=== PATIENT | male | born 1960 | race Caucasian/White ===

== ENCOUNTER 2016-08-21 07:49 | Day surgery (SDC) | payer OTHER ==
[~2016-08-21] VITALS: Ht 188 cm; Wt 94.8 kg
[~2016-08-21 07:49] MED LIST: 0.9% Sodium Chloride 1,000 ML IV SCH; ASPI81TA2 PO; ATOR20TA35 PO; LISI1TAB3 PO; METO25T PO; NITR0.4T SL; OMEG500C3 PO; OMEP20TA86 PO; Sodium Chloride LOK Flush 10 mL Syringe IV PRN; VALC TOP; fentaNYL-PF 50 mCg/mL 2 mL Inj IVPUSH PRN
[2016-08-21 08:04] VITALS: BP 124/86; PULSE 68; RESP 14; O2SAT 98
[2016-08-21 08:55] VITALS: BP 111/67; PULSE 58; RESP 16; O2SAT 96
[2016-08-21 09:11] VITALS: BP 91/59; PULSE 59; RESP 12; O2SAT 97
--- NOTE | 2016-08-21 13:49 | ENDO ---
[address] [address] ENDOSCOPY PROCEDURE PATIENT: IVETTE WHITE : 1960 MR#: [id number] ADMIT: 08/21/2016 JOB ID: [id number] PROCEDURE: Colonoscopy. INDICATION: Patient with a personal history of colon polyps. Patient's ASA classification is II. Mallampati score is II. MEDICATIONS: Versed at 5 mg, fentanyl 100 mcg. INSTRUMENT USED: PCF-H180AL. Prep quality was fair. PROCEDURE DETAILS: After informed consent was obtained, the patient was brought into the GI suite, where he was placed on oxygen via nasal cannula and monitored with continuous pulse oximeter, telemetry, and blood pressure monitoring. A time-out was performed. Then, he was placed in a left lateral decubitus position and medications were administered for sedation. Digital rectal exam with palpation of the prostate was performed, which revealed large external hemorrhoids. Otherwise the palpated portions of the prostate were unremarkable. The colonoscope was then inserted into the rectum and advanced under direct visualization to the cecum, which was identified by the presence of the ileocecal valve and appendiceal orifice. Once the cecum was reached, the colonoscope was withdrawn back into the rectum as the mucosa and lumen were examined. In the rectum, retroflexion was performed. Following retroflexion, remaining air in the rectum was suctioned, and procedure was completed. FINDINGS: 1. In the cecum there was a diminutive polyp that was removed with cold biopsy forceps. 2. In the transverse colon, there was an approximately 6 mm sessile polyp that was removed with a hot snare. 3. In the distal rectum, there were three diminutive polyps that were removed with cold biopsy forceps. 4. Retroflexed views in the rectum revealed moderate-sized internal hemorrhoids. IMPRESSION: 1. Cecal polyp. 2. Transverse colon polyp. 3. Three rectal polyps. 4. Internal and external hemorrhoids. RECOMMENDATIONS: 1. Fiber rich diet. 2. Avoid NSAIDs and anticoagulants for 72 hours. 3. Repeat colonoscopy pending polyp pathology results. COMPLICATIONS: None. ESTIMATED BLOOD LOSS: Less than 5 mL.
--- NOTE | 2016-08-22 15:02 | PATH ---
SURGICAL PATHOLOGY Attending Physician:Servando Richardson CASE STATUS: Signed Out PATIENT NAME: IVETTE WHITE PID: [id number] : 1960 DATE COLLECTED:08/21/2016 18:22 SPECIMEN: 1: Colon, Biopsy 2: Colon, Biopsy 3: Rectum, Biopsy CLINICAL HISTORY: POLYPS 1). TRANSVERSE COLON POLYP 2). CECAL POLYP 3). RECTAL POLYPS X3 FINAL DIAGNOSIS: 1.TRANSVERSE COLON POLYP: TUBULAR ADENOMA. 2.CECAL POLYP: POLYPOID-SHAPED FRAGMENTS OF COLON MUCOSA CONSISTENT WITH MUCOSAL POLYPOID REDUNDANCY. NEGATIVE FOR DYSPLASIA AND MALIGNANCY. 3.RECTAL POLYPS: TUBULAR ADENOMA INVOLVING SINGLE BIOPSY FRAGMENT. HYPERPLASTIC POLYP INVOLVING TWO BIOPSY FRAGMENTS. ICD10 CODE D12.8 GROSS DESCRIPTION: The specimen is received in three formalin filled containers labeled with the patient's name. 1). The specimen is sublabeled "transverse colon polyp" and consists of a 0.3 x 0.2 x 0.2 CM portion of tissue which is entirely submitted in cassette 1A. 2). The specimen is sublabeled "cecal polyp" and consists of a 0.5 x 0.3 x 0.2 CM portion of tissue which is entirely submitted in cassette 2A. 3). The specimen is sublabeled "rectal polyps x3" and consists of 3 portions of tissue which aggregate to 0.3 x 0.3 x 0.2 CM. The specimen is entirely submitted in cassette 3A. 08/21/2016 DAC MICRO DESCRIPTION: See diagnosis. ICD-9 CODES: CPT CODES: 1: 01423 2: 51316 3: 46455 Electronically Signed Out Murtaza Kaufman MD [facility] [address], [place] [address] Technical component performed at [facility], [facility] [address], [place], [address]
== END 2016-08-21 23:59 | disposition home or self-care (01) ==
LOC: END 07:49
PROVIDERS: ATTEND Internal Medicine Gastroenterology
DX: Z12.11 Encounter for screening for malignant neoplasm of colon (principal); D12.3 Benign neoplasm of transverse colon; D12.8 Benign neoplasm of rectum; K63.5 Polyp of colon; K64.8 Other hemorrhoids; Z86.010 Personal history of colon polyps; Z79.82 Long term (current) use of aspirin; Z79.899 Other long term (current) drug therapy
CPT/HCPCS: 45380; 45385; G0500; J2250; J3010; J7030